=== PATIENT | female | born 1935 | race Hispanic/Latino ===

== ENCOUNTER 2017-07-24 12:16 | Observation (INO) | payer SELFPAY ==
[2017-07-24 13:06] LABS: #Eosinphils 0.1 thou/uL (0.0-0.7); #Lymphocytes 1.4 thou/uL (1.20-3.40); #Monocytes 0.4 thou/uL (0.11-0.59); #Neutrophils 4.5 thou/uL (1.40-6.50); %Basophils 0.6 % (0.0-1.0); %Lymphocytes 21.4 % (21.0-51.0); %Monocytes 5.8 % (0.0-10.0); %Neutrophils 71.2 % (42.0-75.0); Hemoglobin 13.5 g/dL (12.0-16.0); Mean Corpuscular HGB CONC 33.6 g/dL (32.0-36.0); Mean Corpuscular Hemoglobin 30.8 pg (27.0-31.0); Mean Corpuscular Volume 91.9 fl (81.0-99.0); Mean Platelet Volume 8.5 fL (7.4-10.4); Platelet Count 228 thou/uL (130-400); RBC Distribution Width 11.9 % (11.5-14.5); Red Blood Cell (RBC) Count 4.39 mill/uL (4.20-5.40); White Blood Cell (WBC) Count 6.3 thou/uL (4.8-10.8)
[2017-07-24 13:29] LABS: ALT (SGPT) 11 U/L (8-55); AST (SGOT) 12 U/L (5-34); Albumin 3.6 g/dL (3.4-4.8); Alkaline Phosphatase 70 U/L (40-150); Anion Gap 11 mmol/L (10-20); BUN (Urea Nitrogen) 12 mg/dL (9.8-20.1); Bilirubin, Total 0.4 mg/dL (0.2-1.2); CK (CPK) 45 U/L (29-168); Calc. Creatinine Clearance 0 mL/min (70-130); Calcium 9.4 mg/dL (7.8-10.44); Carbon Dioxide 27 mmol/L (23-31); Chloride 100 mmol/L (98-107); Estimated GFR-MDRD 68; Globulin 2.8 g/dL (2.4-3.5); Glucose 438 mg/dL (83-110); Potassium 3.9 mmol/L (3.5-5.1); Protein, Total 6.4 g/dL (6.0-8.3); Sodium 134 mmol/L (136-145)
[2017-07-24 13:31] LABS: CKMB 1.7 ng/mL (0-6.6); Troponin I Less than 0.010 ng/mL (< 0.028)
[2017-07-24 14:45] LABS: Bilirubin Negative (Negative); Blood, Urine Negative (Negative); Clarity CLEAR (Clear); Glucose, Urine (Dipstick) >=1000 mg/dL (Negative); Leukocyte Negative (Negative); Nitrite Positive (Negative); Protein, Urine (Dipstick) Negative (Neg-Trace); Specific Gravity, Urine 1.042 (1.002-1.036); Urobilinogen 0.2 mg/dL (0.2-1.0); pH, Urine 5.5 (5.0-9.0)
[2017-07-24 14:48] LABS: Bacteria/HPF 4+ HPF (None Seen); Hyaline Casts/LPF 0-3 HYALINE CAST LPF (0-3 Hyaline); Pathc Cast-AUWi Flag 0.13 (0-2.49); RBC/HPF None Seen HPF (0-3); Squamous Epithelial None Seen HPF (0-3); WBC/HPF 0-3 HPF (0-3)
--- NOTE | 2017-07-24 15:38 | RAD ---
FRONTAL VIEW CHEST: Indication: Dizziness, abdominal pain. FINDINGS: There is air seen beneath the hemidiaphragms. No lobar consolidation, effusion, or pneumothorax. The cardiac silhouette is accentuated with portable technique. There is mild prominence of the pulmonary vasculature. IMPRESSION: 1. No focal consolidation. 2. Prominent pulmonary vasculature and borderline sized cardiac silhouette which is accentuated with portable technique. Correlate for evidence of CHF. POS: [facility]
[2017-07-24] MEDS ORDERED: cefTRIAXone\\ROCEPHIN 2 GM in Sodium Chloride 0.9% 100 ML IVPB SCH (15:45)
--- NOTE | 2017-07-24 15:59 | CT ---
CT OF HEAD NONCONTRAST: Indication: Dizziness. FINDINGS: Numerous intracranial calcifications are present. There is no mass effect, midline shift, or intracra nial hemorrhage. There is mild chronic microvascular ischemic disease. Mild parenchymal volume loss w ith compensatory dilatation of the ventricular system present. IMPRESSION: 1. Multifocal intracranial parenchymal calcifications. 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 2. Evidence of mild chronic microvascular ischemic disease. 3. 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 POS: [facility]
[2017-07-24 17:08] LABS: Lactic Acid 2.6 mmol/L (0.5-2.2)
[2017-07-24] MEDS ORDERED: Ondansetron ODT 4 MG TAB SL PRN (18:13)
[2017-07-24] MEDS ORDERED: Ondansetron HCl/PF 4 MG/2 ML Vial IVP PRN (18:13)
[2017-07-24] MEDS ORDERED: Sodium Chloride 0.9% 1,000 ML IV SCH (18:13)
[2017-07-24] MEDS ORDERED: Acetaminophen 325 MG TAB PO PRN (18:19)
[2017-07-24] MEDS ORDERED: Ondansetron ODT 4 MG TAB PO PRN (18:19)
[2017-07-24] MEDS ORDERED: Dextrose 50% Abboject 50 ML SYRINGE SLOW IVP PRN (18:19)
[2017-07-24] MEDS ORDERED: Dextrose 5% in Water 1,000 ML IV PRN (18:19)
[2017-07-24] MEDS ORDERED: glyBURIDE 5 MG TAB PO SCH (18:30)
[2017-07-24] MEDS: Sodium Chloride 0.9% 1,000 ML IV SCH (18:37)
[2017-07-24 20:27] VITALS: BMI 25.1
[2017-07-24] MEDS ORDERED: Prevnar 13-Val Conj/PF 0.5 ML SYRINGE IM ONE (21:00)
[2017-07-24] MEDS ORDERED: FLU VACC TS2017-18 (>65YR) 0.5 ML SYRINGE IM ONE (21:00)
[2017-07-24] MEDS: HumaLOG 300 UNITS/3 ML VIAL SC PRN (21:05)
[2017-07-24] MEDS: Losartan Potassium 25 MG TAB PO SCH (21:06)
[2017-07-24] MEDS ORDERED: HumaLOG 300 UNITS/3 ML VIAL SC PRN (21:12)
[2017-07-24] MEDS ORDERED: hydrOXYzine 10 MG TAB PO SCH (21:30)
--- NOTE | 2017-07-24 22:17 | RAD ---
PELVIS ONE VIEW: History: Fall. Comparison: None. FINDINGS: No displaced fracture or malalignment. There is narrowing of the pubic symphysis. Calcified granuloma most likely avulsion fracture of the left inferior superior iliac spine. IMPRESSION: 1. No acute abnormalities. 2. Likely soft tissue contusion of the left hemipelvis. 3. Likely soft tissue granuloma and less likely a small avulsion injury off the left anterior superio r iliac spine. POS: [facility]
[2017-07-24 22:32] LABS: Lactic Acid 2.9 mmol/L (0.5-2.2)
--- NOTE | 2017-07-25 00:18 | HP ---
DATE OF SERVICE: 07/24/2017 CHIEF COMPLAINT: Vaginal discharge. HISTORY OF PRESENT ILLNESS: The patient is an 81-year-old female with a past medical histor y of hypertension, hyperlipidemia, and history of neurocysticercosis, status post treatment, who is o riginally from [place], but is here visiting family who presented to the ER with a week long history o f vaginal discharge, dysuria, generalized malaise and weakness. The patient started developing supra pubic abdominal pain and was more confused than normal. Most of the history was taken via emblem cutter phone. It may be a component of dementia and CT scan is indicative of possible past stroke. The pa senait's family notes that she has had more difficulty walking over the past couple of days and just s eems less coordinated. Upon arrival to the ER, it was noted that she had a urinary tract infection a nd her UA showed positive nitrites and 4+ bacteria. For the full past medical history and review of systems, please see Dr. Smith's dictation. PHYSICAL EXAMINATION: VITAL SIGNS: Stable. GENERAL: The patient is awake and alert, in no acute distress. CARDIOVASCULAR: Regular rate and rhythm without murmurs, gallops, or rubs. LUNGS: Clear to auscultation bilaterally without wheezing or rhonchi. ABDOMEN: Soft, nondistended with mild suprapubic abdominal pain and tenderness to palpation with bow el sounds present. EXTREMITIES: There is no clubbing, cyanosis, or edema. ASSESSMENT AND PLAN: 1. Urinary tract infection: We will continue Rocephin. Blood and urine cultures have been drawn. The patient's lactic acid is elevated at 3.0. She will be continued with fluid and this will be tren ded. 2. Diabetes: The patient's blood sugar on arrival was 438 and she had greater than 1000 glucose in her urine. We will place her on sliding scale and check an A1c. 3. Vaginal discharge: We will check a FISH HATCHERY WORKER-3 and treat as indicated. For the full history and physical, assessment and plan, please see the resident's dictation. I have discussed the case in detail and repeated pertinent portions of the exam and agree with his documenta tion.
--- NOTE | 2017-07-25 00:20 | HP-2 ---
CODE STATUS: FULL. PRIMARY CARE PHYSICIAN: City jamli. ATTENDING PHYSICIAN: Rimma Borrego MD RESIDENT: Pedrito Smith MD Her historian is her daughter. CHIEF COMPLAINT: Weakness, dysuria, and vaginal discharge. HISTORY OF PRESENT ILLNESS: This 81-year-old female presents with 1-week history of abdominal pain, dysuria, and vaginal discharge. She is visiting some family in town. She is originally from [place] and she has been in [facility] for roughly 2 weeks. At her baseline, her daughters report that she has Alzheimer's and needs close care at all times during the day. She has not been acting herself normally recently though. She has had progressive weakness with frequent falls and difficulty walking. The daughter denied any fevers, nausea, vomiting, or diarrhea. She does specifically note some vague abdominal pain, having to go to the bathroom frequently, having the urge to go to the bathroom, and then also having pain while going to the bathroom. Daughter also notes that the patient has stated that she has had some vaginal discharge that is malodorous. No other complaints are offered at this time. In the ER, she was given a 2-liter normal saline bolus and Rocephin. PAST MEDICAL HISTORY: Significant for diabetes mellitus, hypertension, Alzheimer's dementia, and CAD. PAST SURGICAL HISTORY: Significant for cataracts repair bilaterally. ALLERGIES: No known drug allergies. MEDICATIONS: 1. Losartan 50 mg b.i.d. 2. Glyburide equivalent 5 mg b.i.d. FAMILY HISTORY: Noncontributory. SOCIAL HISTORY: No tobacco, alcohol, or drug use. REVIEW OF SYSTEMS: General: No fevers, no chills, no weight changes, no night sweats, no fatigue. Eyes: No vision changes or eye pain. ENT: No nasal congestion, rhinorrhea, or sore throat. Respiratory: Denies cough, congestion , shortness of breath. Cardiovascular: Denies chest pain, palpitations, or edema. Gastrointestinal: Denies any nausea, vomiting, diarrhea, or constipation. She does admit to abdominal pain. Genitourinary: Denies any incontinence. She does admit to dysuria, polyuria, discharge, and urgency. Skin: Denies any rashes, lesions, jaundice, itching. Musculoskeletal: Denies pain, tenderness, stiffness, swelling, or arthritis of any joints. Neurologic: She denies any weakness, numbness, syncope, or seizure. She does admit to dizziness and falls. Psychiatric: She denies anxiety or depression. PHYSICAL EXAMINATION: VITAL SIGNS: Blood pressure is 133/76, pulse is 72, respirations 18, temperature max 97, pulse ox 97% on room air, current weight is 66 kg. GENERAL: Alert and oriented x1. Appropriately interactive. EYES: PERRLA. Conjunctivae within normal limits. ENT: Tympanic membranes pearly kemp without bulging or erythema. Nasal mucosa and oropharynx within normal limits. NECK: Supple. No lymphadenopathy, no thyromegaly. CARDIOVASCULAR: Regular rate and rhythm. No murmurs, no gallops. Radial and pedal pulses are equal bilaterally. RESPIRATORY: Normal effort, no retractions. Clear lungs to auscultation bilaterally. SKIN: Warm and dry. ABDOMEN: Soft. She did have tenderness to palpation in the suprapubic region. Bowel sounds are present x4. No mass or distention. EXTREMITIES: No clubbing, cyanosis, or edema. MUSCULOSKELETAL: Structure, tone, muscle strength, and range of motion within normal limits. NEUROLOGIC: No focal neurologic deficits. Sensation is within normal limits. Cranial nerves II-XII grossly intact. GCS was 15. PSYCHIATRIC: Appropriate. LABORATORY DATA: White blood cell count 6.3, platelet count 228, hemoglobin 13.5, hematocrit 40.3, MCV was 91.9. Sodium was 134, potassium was 3.9, chloride was 100, bicarb was 27, BUN was 12, creatinine was 0.81, glucose was 438, CK was 45, CK-MB was 1.7. Troponin I was less than 0.01. Calcium was 9.4 , total protein 6.4, albumin 3.6, total bilirubin 0.4, AST was 12, ALT 11, alkaline phosphatase was 70, lactate was 3. Her UA did show positive for nitrites, greater than 1000 for glucose, 0-3 white blood cells, and 4+ bacteria. Her EKG showed sinus arrhythmia; septal infarct, age indeterminate. Chest x- ray showed cardiomegaly with mild prominence of pulmonary vasculature. Head CT showed chronic ischemic changes, multifocal intraparenchymal calcifications with remote white matter infarct. ASSESSMENT AND PLAN: 81-year-old female with past medical history of diabetes mellitus type 2, hypertension presents with: 1. Complicated urinary tract infection. We will give her Rocephin. Urine and blood cultures are pending. We will give IV fluids. Transition to p.o. antibiotics once sensitivities are known. 2. Hyperglycemia and diabetes mellitus type 2, likely secondary to infection. We will check hemoglobin A1c. Start her on sliding scale insulin and Accu- Cheks. We will also consider changing her away from her glyburide equivalent as an outpatient going forward. 3. Hypertension. Continue her home meds. 4. Vaginal discharge. We are getting a VB3, and we will consider fluconazole when appropriate. 5. Elevated lactic acid. We will repeat a lactic acid. We will give her IV fluids. 6. Frequent falls. We will get a hip x-ray to rule out fracture. We will also put her on fall precautions as well as ambulation with help, and we are going to get PT and OT involved as well. 7. Alzheimer's dementia. She is not currently on any home medications, but we will make sure that she has supervision and all the precautions as discussed above. DISPOSITION/LENGTH OF HOSPITAL STAY: Medical observation and 1. Symptomatic medications will be provided. History and physical exam as well as management has been discussed with Dr. Borrego. SIVAN
[2017-07-25] MEDS: Sodium Chloride 0.9% 1,000 ML IV SCH ×2 (02:15→09:31)
[2017-07-25] MEDS: HumaLOG 300 UNITS/3 ML VIAL SC PRN ×2 (05:32→11:56)
[2017-07-25 05:35] LABS: Anion Gap 13 mmol/L (10-20); BUN (Urea Nitrogen) 8 mg/dL (9.8-20.1); Calc. Creatinine Clearance 70 mL/min (70-130); Calcium 8.5 mg/dL (7.8-10.44); Carbon Dioxide 22 mmol/L (23-31); Chloride 109 mmol/L (98-107); Estimated GFR-MDRD 85; Glucose 215 mg/dL (83-110); Potassium 3.7 mmol/L (3.5-5.1); Sodium 140 mmol/L (136-145)
[2017-07-25] MEDS ORDERED: glyBURIDE 5 MG TAB PO SCH ×2 (08:00→17:00)
--- NOTE | 2017-07-25 08:29 | PDOC.FM ---
- Subjective Subjective: Pt feels better today. Her weakness has improved as has the abdominal pain. She denies fever, chills, n/v or any new symptoms. There were no acute events over night. - Objective MAR Reviewed: Yes Vital Signs & Weight: Vital Signs (12 hours) Temp Pulse Resp BP Pulse Ox 07/25/17 08:09 97.1 F L 69 18 129/80 98 07/25/17 04:00 97.7 F 67 18 137/65 98 07/25/17 00:00 97.5 F L 73 18 133/77 100 Weight Weight 66.451 kg I&O: 07/24/17 07/25/17 07/26/17 06:59 06:59 06:59 Intake Total 2280 Balance 2280 Result Diagrams: 07/24/17 12:53 07/25/17 04:31 <Ramon Yan - Last Filed: 07/25/17 08:25> - Objective Vital Signs & Weight: Vital Signs (12 hours) Temp Pulse Resp BP Pulse Ox 07/25/17 10:41 98.1 F 67 20 135/74 99 07/25/17 08:09 97.1 F L 69 18 129/80 98 07/25/17 08:00 97.1 F L 69 18 07/25/17 04:00 97.7 F 67 18 137/65 98 Weight Weight 66.451 kg I&O: 07/24/17 07/25/17 07/26/17 06:59 06:59 06:59 Intake Total 2280 240 Balance 2280 240 Result Diagrams: 07/24/17 12:53 07/25/17 04:31 <David Lundy - Last Filed: 07/25/17 12:57> Phys Exam - Physical Examination Constitutional: NAD HEENT: PERRLA, moist MMs Neck: no nodes, no JVD Respiratory: clear to auscultation bilateral Cardiovascular: RRR, no significant murmur Gastrointestinal: soft, non-tender, positive bowel sounds Musculoskeletal: no edema Neurological: non-focal Psychiatric: normal affect, A&O x 3 Skin: no rash <Ramon Yan - Last Filed: 07/25/17 08:25> Dx/Plan (1) Complicated UTI (urinary tract infection) Code(s): N39.0 - URINARY TRACT INFECTION, SITE NOT SPECIFIED Status: Acute (2) DM2 (diabetes mellitus, type 2) Status: Chronic QualifierTitle: Diabetes mellitus complication status: without complication Diabetes mellitus senior living insulin use: without terminal clerk use Qualified Code(s): E11.9 - Type 2 diabetes mellitus without complications (3) HTN (hypertension) Code(s): I10 - ESSENTIAL (PRIMARY) HYPERTENSION Status: Chronic QualifierTitle: Hypertension type: essential hypertension Qualified Code( s): I10 - Essential (primary) hypertension (4) Vaginal discharge Code(s): N89.8 - OTHER SPECIFIED NONINFLAMMATORY DISORDERS OF VAGINA Status: Acute (5) Lactic acid acidosis Code(s): E87.2 - ACIDOSIS Status: Resolved (6) Alzheimer's dementia Code(s): G30.9 - ALZHEIMER'S DISEASE, UNSPECIFIED Status: Chronic - Plan Plan: 1. Complicated UTI - continue rocephin until sensitivities result. Cx show G- Gautam - Repeat lactic acid - blood cx pending - given normal WBC and vitals, risk for bacteremia is low 2. DM2 - ACHS accucheck - continue home meds - SSI 3. HTN - currently controlled, continue home meds - monitor per unit routine 4. Vaginal discharge - VP3 pending 5. Lactic acid acidosis - repeat as above - continue IVF 6. Alzheimer's Dementia - Not on meds. Keep windows open during day, closed at night. Make glasses/ hearing aids available. Keep family/sitter in the room <Ramon Yan - Last Filed: 07/25/17 08:25> Attending Addendum - Attending Addendum I personally evaluated the patient and discussed the management with Dr. Yan. I agree with the History, Examination, Assessment and Plan documented above with any addition or exceptions noted below. Patient admitted with weakness thought to be due to UTI. She is on antibiotic treatment for that and we are awaiting sensitivities. She also has been found to have uncontrolled DM, likely contributing to her risk for infection. Will escalate her diabetic regimen, and work to find out her home insulin regimen and resume that. She is also having vaginal discharge and we will collect VP3, consider ppx treatment for likely candidal infection due to her uncontrolled blood sugars. <David Lundy - Last Filed: 07/25/17 12:57>
[2017-07-25] MEDS ORDERED: Losartan Potassium 25 MG TAB PO SCH (09:00)
[2017-07-25] MEDS ORDERED: glipiZIDE 5 MG TAB PO SCH (09:00)
[2017-07-25] MEDS ORDERED: Enoxaparin Sodium 40 MG/0.4 ML SYRINGE SC SCH (09:00)
[2017-07-25] MEDS: Losartan Potassium 25 MG TAB PO SCH (09:27)
[2017-07-25 10:03] LABS: Lactic Acid 2.2 mmol/L (0.5-2.2)
[2017-07-25 10:42] VITALS: TEMP 98.1
[2017-07-25 13:26] VITALS: BP 167/74
[2017-07-25] MEDS ORDERED: cefTRIAXone\\ROCEPHIN 1 GM in Sodium Chloride 0.9% 100 ML IVPB SCH (15:45)
[2017-07-25] MEDS ORDERED: cefTRIAXone\\ROCEPHIN 1 GM, Syringe 0.4 ML in Sterile Water 9.6 ML SLOW IVP SCH (17:00)
--- NOTE | 2017-07-26 14:18 | DIS-2 ---
DATE OF ADMISSION: 07/24/2017 DATE OF DISCHARGE: 07/25/2017 The patient was not discharged; however, left AMA. RESIDENT: Ramon Yan DO ADMITTING ATTENDING: Rimma Borrego M.D. DISCHARGE ATTENDING: David Lundy M.D. CONSULTATIONS: None. PROCEDURES: None. DISCHARGE MEDICATIONS: Unable to determine discharge medications, as patient left AMA. DISCONTINUED MEDICATIONS: None. HOSPITAL COURSE: Patient was admitted initially with a complicated UTI and started on antibiotics. HISTORY OF PRESENT ILLNESS: Patient is an 81-year-old female with a history of diabetes, hypertensio n, and Alzheimer disease, who was admitted for a complicated urinary tract infection. Patient was in itially treated with Rocephin. Additionally on admission, there was a complaint of vaginal discharge . A ORANGE PICKING SUPERVISOR-3 was ordered in order to determine the possible etiology of what the most likely being a can didal yeast infection. Urine cultures of 24-hour showed a Gram-negative lesa and initial elevated lac tic acid began to trend down. On the 2nd day of admission after rounding and determining it was appr opriate to continue the patient on IV antibiotics until sensitivities resulted. Patient left AMA wit h family without a prescription for additional antibiotics or any further instructions. DISPOSITION: Guarded. DISCHARGE INSTRUCTIONS: 1. Location: Patient left AMA. 2. Diet: Patient left AMA. Discharge instructions are unable to give the patient as patient left A MA. 3. Followup: Unable to coordinate, as the patient left AMA.
== END 2017-07-25 18:00 | disposition left against medical advice (07) ==
LOC: ERS 12:16 → T4-B 18:03
PROVIDERS: ADMIT Family Medicine; ATTEND Family Medicine
DX: N39.0 Urinary tract infection, site not specified (principal); N89.8 Other specified noninflammatory disorders of vagina; E11.9 Type 2 diabetes mellitus without complications; I10 Essential (primary) hypertension; E87.2 Acidosis; G30.9 Alzheimer's disease, unspecified; F02.80 Dementia in other diseases classified elsewhere, unspecified severity, without behavioral disturbance, psychotic disturbance, mood disturbance, and anxiety; I25.10 Atherosclerotic heart disease of native coronary artery without angina pectoris; Z53.21 Procedure and treatment not carried out due to patient leaving prior to being seen by health care provider; Z91.81 History of falling; Z86.19 Personal history of other infectious and parasitic diseases; Z79.84 Long term (current) use of oral hypoglycemic drugs; Z79.899 Other long term (current) drug therapy; Z98.42 Cataract extraction status, left eye; Z98.41 Cataract extraction status, right eye
CPT/HCPCS: 36415; 36416; 51701; 70450; 71045; 72170; 80048; 80053; 81003; 81015; 82553; 83036; 83605; 83930; 84484; 85025; 87040; 87077; 87086; 87186; 87480; 87510; 87660; 93005; 94760; 96361; 96365; 96372; A4216; A4353; G0378; G8978-GP-CJ; G8979-GP-CJ; G8980-GP-CJ; J0696; J1650; J7050